=== PATIENT | female | born 1955 | race Caucasian/White ===

== ENCOUNTER → 2017-01-29 | Outpatient (CLI) | payer BC ==
[~2017-01-29] VITALS: Ht 160 cm; Wt 97.1 kg
[~2017-01-29] MED LIST: DICL75TA PO; GLUC1CAP9 PO; IBUP600T26 PO; LIDOCAINE 2% INJ 100 MG/5 ML SDV (FOR ANES.) As Ordered ONE; LISI-542 PO; MECL12.575 PO; MEGE40TA PO; NORC5TAB PO; NS 1,000 ML IV SCH; OMEP40CA2 PO; PROPOFOL 200 MG/20 ML VIAL As Ordered ONE; SKEL-29 PO; TRIC145T PO; TYLE500T78 PO; VITA200016 PO
--- NOTE | 2017-01-29 09:12 | ROOR ---
Patient Name: Janet Valerio Procedure Date: 01/29/2017 9:00 AM Date of : 1955 Age: 61 Room: [facility] Gender: Female Note Status: Finalized Procedure: Upper GI endoscopy Indications: Dysphagia, Heartburn Providers: Adilson PAPPAS MD Referring MD: Danae Cesar NP Requesting Provider: Medicines: Monitored Anesthesia Care Complications: No immediate complications. Procedure: Pre-Anesthesia Assessment: - The heart rate, respiratory rate, oxygen saturations, blood pressure, adequacy of pulmonary ventilation, and response to care were monitored throughout the procedure. The Endoscope was introduced through the mouth, and advanced to the second part of duodenum. The upper GI endoscopy was accomplished without difficulty. The patient tolerated the procedure well. Findings: The esophagus was normal. The stomach was normal. The examined duodenum was normal. No endoscopic abnormality was evident in the esophagus to explain the patient's complaint of dysphagia. It was decided, however, to proceed with dilation of the entire esophagus. The scope was withdrawn. Dilation was performed with a Awan dilator with no resistance at 54 Fr. The dilation site was examined and showed no change. Impression: - Normal esophagus. - Normal stomach. - Normal examined duodenum. - No endoscopic esophageal abnormality to explain patient's dysphagia. Esophagus dilated with 54 awan dilator. - No specimens collected. Recommendation: - Continue present medications. - Observe patient's clinical course. - I anticipate no further need for intervention. Adilson Pappas MD Adilson PAPPAS MD 01/29/2017 9:11:40 AM This report has been signed electronically. Number of Addenda: 0 Note Initiated On: 01/29/2017 9:00 AM Estimated Blood Loss: Estimated blood loss: none.
--- NOTE | 2017-01-29 09:22 | ROOR ---
Patient Name: Janet Valerio Procedure Date: 01/29/2017 9:00 AM Date of : 1955 Age: 61 Room: [facility] Gender: Female Note Status: Finalized Procedure: Colonoscopy Indications: High risk colon cancer surveillance: Personal history of colonic polyps, Last colonoscopy: December 2013 Providers: Adilson PAPPAS MD Referring MD: Danae Cesar NP Requesting Provider: Medicines: Monitored Anesthesia Care Complications: No immediate complications. Procedure: Pre-Anesthesia Assessment: - The heart rate, respiratory rate, oxygen saturations, blood pressure, adequacy of pulmonary ventilation, and response to care were monitored throughout the procedure. The Colonoscope was introduced through the anus and advanced to the cecum, identified by appendiceal orifice and ileocecal valve. The colonoscopy was performed without difficulty. The patient tolerated the procedure well. The quality of the bowel preparation was good. Findings: The perianal and digital rectal examinations were normal. (Exam: Complete, Prep: Good or Excellent.) The entire examined colon appeared normal on direct and retroflexion views. Impression: - Small internal hemorrhoids. - The entire colon is normal on direct and retroflexion views. - No specimens collected. Recommendation: - Repeat colonoscopy in 5 years for adenoma surveillance. Adilson Pappas MD Adilson PAPPAS MD 01/29/2017 9:22:02 AM This report has been signed electronically. Number of Addenda: 0 Note Initiated On: 01/29/2017 9:00 AM Estimated Blood Loss: Estimated blood loss: none.
[2017-01-29 09:45] VITALS: BP 136/79
== END ==
LOC: M OPP 07:49
PROVIDERS: ATTEND Internal Medicine Gastroenterology
DX: Z12.11 Encounter for screening for malignant neoplasm of colon (principal); Z86.010 Personal history of colon polyps; K64.8 Other hemorrhoids; R13.10 Dysphagia, unspecified; R12 Heartburn; I10 Essential (primary) hypertension; E78.5 Hyperlipidemia, unspecified; M51.26 Other intervertebral disc displacement, lumbar region; G47.30 Sleep apnea, unspecified; Z79.899 Other long term (current) drug therapy; Z88.0 Allergy status to penicillin; Z88.1 Allergy status to other antibiotic agents; Z88.2 Allergy status to sulfonamides
CPT/HCPCS: 43235; 43450; 99156; 99157; G0105

== ENCOUNTER → 2017-05-26 | Outpatient (REF) | payer BC ==
[~2017-05-26] MED LIST changes: +IBUP-1022 PO; -IBUP600T26 PO; -LIDOCAINE 2% INJ 100 MG/5 ML SDV (FOR ANES.) As Ordered ONE; -MEGE40TA PO; +MEGE40TA18 PO; +NORC1TAB4 PO; -NORC5TAB PO; -NS 1,000 ML IV SCH; -PROPOFOL 200 MG/20 ML VIAL As Ordered ONE; -SKEL-29 PO; +SKEL800T97 PO; -TRIC145T PO; +TRIC145T22 PO
[2017-05-26 13:05] LABS: ALBUMIN 3.7 GM/DL (3.2-5.2); ALBUMIN/GLOBULIN RATIO 1.23 (1.00-1.93); BILIRUBIN,DIRECT 0.1 MG/DL (0.0-0.2); BILIRUBIN,TOTAL 0.4 MG/DL (0.2-1.0); TOTAL PROTEIN 6.7 GM/DL (6.4-8.2)
== END ==
LOC: M SFHCCLAY 07:05
PROVIDERS: ATTEND Nurse Practitioner Family
DX: E78.2 Mixed hyperlipidemia (principal); E55.9 Vitamin D deficiency, unspecified

== ENCOUNTER → 2018-05-13 | Outpatient (REF) | payer BC ==
[2018-05-13 13:03] LABS: ALBUMIN 3.8 GM/DL (3.2-5.2); ALBUMIN/GLOBULIN RATIO 1.19 (1.00-1.93); ALKALINE PHOSPHATASE 64 U/L (45-117); ALT/SGPT 27 U/L (12-78); ANION GAP 7 MEQ/L (8-16); AST/SGOT 15 U/L (7-37); BILIRUBIN,TOTAL 0.5 MG/DL (0.2-1.0); BLOOD UREA NITROGEN 22 MG/DL (7-18); CALCIUM LEVEL 8.8 MG/DL (8.8-10.2); CARBON DIOXIDE LEVEL 27 MEQ/L (21-32); CHLORIDE LEVEL 109 MEQ/L (98-107); CHOLESTEROL LEVEL 133 MG/DL (<200); CHOLESTEROL RISK RATIO 2.509 (<5); CREATININE FOR GFR 0.82 MG/DL (0.55-1.30); GLOMERULAR FILTRATION RATE > 60.0 (>45); GLUCOSE, FASTING 103 MG/DL (70-100); HDL CHOLESTEROL 53 MG/DL (>40); LDL CHOLESTEROL 67.8 MG/DL (<100); NON-HDL-C 80 MG/DL; POTASSIUM SERUM 4.6 MEQ/L (3.5-5.1); SODIUM LEVEL 143 MEQ/L (136-145); TRIGLYCERIDES LEVEL 61 MG/DL (<150)
[2018-05-13 13:08] LABS: HEMOGLOBIN 13.5 g/dl (12.0-15.5); MEAN CORPUSCULAR HEMOGLOBIN 29.6 pg (27.0-33.0); MEAN CORPUSCULAR HGB CONC 33.8 g/dl (32.0-36.5); MEAN CORPUSCULAR VOLUME 87.7 fl (80.0-96.0); PLATELET COUNT, AUTOMATED 184 10^3/uL (150-450); RED BLOOD COUNT 4.56 10^6/uL (4.00-5.40); WHITE BLOOD COUNT 6.2 10^3/uL (4.0-10.0)
[2018-05-13 13:09] LABS: TOTAL 25(OH) VITAMIN D 16.2 NG/ML (30.0-100.0)
[2018-05-13 13:20] LABS: ESTIMATED AVERAGE GLUCOSE 117 MG/DL (60-110); HEMOGLOBIN A1c 5.7 %
== END ==
LOC: M SFHCCLAY 07:01
DX: K21.9 Gastro-esophageal reflux disease without esophagitis (principal); I10 Essential (primary) hypertension; R73.09 Other abnormal glucose; E78.2 Mixed hyperlipidemia; Z68.35 Body mass index [BMI] 35.0-35.9, adult; Z13.21 Encounter for screening for nutritional disorder
CPT/HCPCS: 84443

== ENCOUNTER → 2018-06-07 | Outpatient (REF) | payer BC ==
[2018-06-07 11:47] LABS: RHEUMATOID FACTOR QUANT < 10.0 IU/ML (<15.0)
[2018-06-07 11:48] LABS: ERYTHROCYTE SEDIMENTATION RATE 7 mm/hr (0-30)
[2018-06-09 14:40] LABS: ANTI DOUBLE STRAND-DNA AB 2 IU/mL (0-9); ANTINUCLEAR ANTIBODIES DIRECT Positive (Negative); Lyme Disease IgG Ab 18 kDa Ban Absent (.); Lyme Disease IgG Ab 23 kDa Ban Absent (.); Lyme Disease IgG Ab 28 kDa Ban Absent (.); Lyme Disease IgG Ab 30 kDa Ban Absent (.); Lyme Disease IgG Ab 39 kDa Ban Absent (.); Lyme Disease IgG Ab 41 kDa Ban Absent (.); Lyme Disease IgG Ab 45 kDa Ban Absent (.); Lyme Disease IgG Ab 58 kDa Ban Absent (.); Lyme Disease IgG Ab 66 kDa Ban Absent (.); Lyme Disease IgG Ab 93 kDa Ban Absent (.); Lyme Disease IgG West Blot Int Negative (.); Lyme Disease IgG/IgM Antibodie 1.12 ISR (0.00-0.90); Lyme Disease IgM Ab 23 kDa Ban Absent (.); Lyme Disease IgM Ab 39 kDa Ban Absent (.); Lyme Disease IgM Ab 41 kDa Ban Absent (.); Lyme Disease IgM Ab Quantitati <0.80 index (0.00-0.79); Lyme Disease IgM West Blot Int Negative (.); RNP ANTIBODIES <0.2 AI (0.0-0.9); SJOGREN'S ANTI SS-A <0.2 AI (0.0-0.9); SJOGREN'S ANTI SS-B <0.2 AI (0.0-0.9); SMITH ANTIBODIES <0.2 AI (0.0-0.9)
== END ==
LOC: M SFHCCLAY 06:57
DX: M25.50 Pain in unspecified joint (principal)
CPT/HCPCS: 85652

== ENCOUNTER → 2018-08-24 | Outpatient (CLI) | payer BC | LOC: M LRY 09:20 | DX: M79.645 Pain in left finger(s) (principal) | CPT/HCPCS: 76882 ==

== ENCOUNTER → 2018-08-24 | Outpatient (REF) | payer BC ==
[2018-08-26 00:08] LABS: ANA (HEP2) Positive (.); ANA CENTROMERE PATTERN >1:1280 (.)
== END ==
LOC: M SFHCLERA 09:20
DX: R76.8 Other specified abnormal immunological findings in serum (principal)
CPT/HCPCS: 86038

== ENCOUNTER → 2018-09-23 | Outpatient (REF) | payer BC | LOC: M SFHCLERA 17:15 | DX: R76.8 Other specified abnormal immunological findings in serum (principal) | CPT/HCPCS: 86255 ==

== ENCOUNTER → 2018-11-02 | Outpatient (CLI) | payer BC | LOC: M CARPUL 11:12 | DX: M34.9 Systemic sclerosis, unspecified (principal) | CPT/HCPCS: 93306 ==

== ENCOUNTER 2018-12-29 12:47 | Day surgery (SDC) | payer BC ==
[~2018-12-29] VITALS: Ht 160 cm; Wt 98.4 kg
[~2018-12-29 12:47] MED LIST changes: +CALTCHW4 PO; +DICY1CAP8 PO; +LIDOCAINE 2% INJ 100 MG/5 ML SDV (FOR ANES.) As Ordered ONE; +MOBI4TAB PO; +NS 1,000 ML IV ONE; +OMEP20CA3 PO; +PROPOFOL 200 MG/20 ML VIAL As Ordered ONE; +RANI150T PO; +TURM500C PO; +VITA500T PO
[2018-12-29] MEDS ORDERED: fentaNYL 100 MCG/2 ML INJECTION (J3010) As Ordered ONE (13:38)
--- NOTE | 2018-12-29 13:59 | ROOR ---
Patient Name: Janet Valerio Procedure Date: 12/29/2018 1:42 PM Date of : 1955 Age: 63 Room: [facility] Gender: Female Note Status: Finalized Procedure: Upper GI endoscopy Indications: Dysphagia, Suspected esophageal reflux, Scleroderma Providers: Adilson PAPPAS MD Referring MD: Danae Cesar NP Requesting Provider: Medicines: Monitored Anesthesia Care Complications: No immediate complications. Procedure: Pre-Anesthesia Assessment: - The heart rate, respiratory rate, oxygen saturations, blood pressure, adequacy of pulmonary ventilation, and response to care were monitored throughout the procedure. The Endoscope was introduced through the mouth, and advanced to the second part of duodenum. The upper GI endoscopy was accomplished without difficulty. The patient tolerated the procedure well. Findings: The esophagus was normal. The stomach was normal. The examined duodenum was normal. Several biopsies were obtained in the entire esophagus with cold forceps for evaluation of eosinophilic esophagitis. Several biopsies were obtained at the gastroesophageal junction with cold forceps for evaluation to rule out Alejandro's Esophagus. Impression: - Normal esophagus. - Normal stomach. - Normal examined duodenum. - Several biopsies were obtained in the entire esophagus. - Several biopsies were obtained in the gastroesophageal junction. Recommendation: - Use Prilosec (omeprazole) 20 mg PO BID indefinitely. - Use Zantac (ranitidine) 300 mg PO at bedtime indefinitely. - Telephone endoscopist for pathology results in 2 weeks. Adilson Pappas MD Adilson PAPPAS MD 12/29/2018 1:59:27 PM This report has been signed electronically. Number of Addenda: 0 Note Initiated On: 12/29/2018 1:42 PM Estimated Blood Loss: Estimated blood loss: none.
[2018-12-29 14:32] VITALS: BP 133/82
== END 2018-12-29 14:32 | disposition home or self-care (01) ==
LOC: M OPP 12:47
PROVIDERS: ATTEND Internal Medicine Gastroenterology
DX: R13.10 Dysphagia, unspecified (principal); M34.9 Systemic sclerosis, unspecified
CPT/HCPCS: 43239; 88305; J3010

== ENCOUNTER → 2019-06-05 | Outpatient (REF) | payer BC ==
[~2019-06-05] MED LIST changes: -LIDOCAINE 2% INJ 100 MG/5 ML SDV (FOR ANES.) As Ordered ONE; -NORC1TAB4 PO; +NORC1TAB7 PO; -NS 1,000 ML IV ONE; -OMEP20CA3 PO; +OMEP20CA4 PO; -PROPOFOL 200 MG/20 ML VIAL As Ordered ONE
[2019-06-05 11:11] LABS: HEMATOCRIT 41.7 % (36.0-47.0); MEAN CORPUSCULAR HEMOGLOBIN 30.1 pg (27.0-33.0); MEAN CORPUSCULAR HGB CONC 33.6 g/dl (32.0-36.5); MEAN CORPUSCULAR VOLUME 89.7 fl (80.0-96.0); PLATELET COUNT, AUTOMATED 211 10^3/uL (150-450); RED BLOOD COUNT 4.65 10^6/uL (4.00-5.40); WHITE BLOOD COUNT 4.9 10^3/uL (4.0-10.0)
[2019-06-05 11:24] LABS: ALBUMIN 3.9 GM/DL (3.2-5.2); ALT/SGPT 35 U/L (12-78); BILIRUBIN,TOTAL 0.3 MG/DL (0.2-1.0); BLOOD UREA NITROGEN 18 MG/DL (7-18); CALCIUM LEVEL 9.3 MG/DL (8.8-10.2); CARBON DIOXIDE LEVEL 25 MEQ/L (21-32); CHLORIDE LEVEL 110 MEQ/L (98-107); CHOLESTEROL LEVEL 164 MG/DL (<200); CHOLESTEROL RISK RATIO 2.981 (<5); CREATININE FOR GFR 0.85 MG/DL (0.55-1.30); GLOMERULAR FILTRATION RATE > 60.0 (>45); GLUCOSE, FASTING 111 MG/DL (70-100); HDL CHOLESTEROL 55 MG/DL (>40); LDL CHOLESTEROL 95 MG/DL (<100); NON-HDL-C 109 MG/DL; POTASSIUM SERUM 4.4 MEQ/L (3.5-5.1); SODIUM LEVEL 141 MEQ/L (136-145); TOTAL PROTEIN 6.9 GM/DL (6.4-8.2); TRIGLYCERIDES LEVEL 68 MG/DL (<150)
== END ==
LOC: M SFHCCLAY 07:56
PROVIDERS: ATTEND Nurse Practitioner Family
DX: K21.9 Gastro-esophageal reflux disease without esophagitis (principal); I10 Essential (primary) hypertension; E78.2 Mixed hyperlipidemia; E55.9 Vitamin D deficiency, unspecified

== ENCOUNTER → 2019-07-28 | Outpatient (CLI) | payer BC ==
--- NOTE | 2019-08-03 08:13 | ECHO ---
DATE OF PROCEDURE: 08/02/2019 DATE OF : 1955 AGE: 64 REFERRING PROVIDER: PATIENT LOCATION: Outpatient REASON FOR THE ECHOCARDIOGRAM: Systemic involvement of chronic tissue disorder, unspecified. 2D MEASUREMENTS: IVS: 1.1 cm LV: 4.7 cm LVPW: 1.1 cm LA: 3.9 cm Aorta: 2.6 cm RV: 3.4 cm IVC: 2.1 cm DOPPLER MEASUREMENTS: Peak velocity across the aortic valve: 1.6 m/s Peak velocity across the LVOT: 1.1 m/s Mitral E: 0.95, Mitral A: 0.76 with a ratio of 1.2 Maximum tricuspid valve velocity: 2.5 m/s 2D COMMENTS: 1. Normal left ventricular size, wall thickness and normal global left ventricular systolic function. The estimated left ventricular systolic ejection fraction is 60 to 65%. 2. Normal left atrium. Normal right atrium and right ventricle. 3. The atrial septum appeared to be normal without evidence of defect or shunt. 4. Normal aortic root. 5. A small pericardial effusion was noted posteriorly at the base of the left ventricle, no evidence of cardiac tamponade. 6. Normal aortic valve, could not rule out collapse of the anterior mitral valve leaflet. Normal tricuspid valve and pulmonic valve. The proximal pulmonary artery branches also appear to be normal. 7. The inferior vena cava was mildly enlarged. Central venous pressure is mildly elevated. DOPPLER: It detects trace to mild tricuspid regurgitation. The calculated pulmonary artery systolic pressure varies between 30-40 mmHg. Abnormal relaxation pattern was noted across the mitral valve leaflets consistent with features of grade 2 left ventricular diastolic dysfunction. IMPRESSION: 1. Normal global left ventricular systolic function. There are some features of left ventricular diastolic dysfunction, as mentioned above. 2. Mild mitral regurgitation, could not rule out collapse of the anterior mitral valve leaflet. 3. Trace to mild tricuspid regurgitation with mild to moderate hypertension. 4. Small pericardial effusion was noted posteriorly at the base of the left ventricle. No evidence of cardiac tamponade. 5. The inferior vena cava was mildly enlarged. Central venous pressure mildly elevated.
== END ==
LOC: M CARPUL 08:11
PROVIDERS: ATTEND Internal Medicine Rheumatology
DX: M35.9 Systemic involvement of connective tissue, unspecified (principal); K21.9 Gastro-esophageal reflux disease without esophagitis; I31.3 Pericardial effusion (noninflammatory); I34.0 Nonrheumatic mitral (valve) insufficiency; I36.1 Nonrheumatic tricuspid (valve) insufficiency

== ENCOUNTER → 2019-08-07 | Outpatient (CLI) | payer BC ==
[~2019-08-07] MED LIST changes: +E-Z-GAS II EFFERVESCENT PACKET (SODIUM BICARB./CITRIC ACID/SIMETHICONE) As Ordered ONE; +E-Z-HD 98% w/w 340GM SUSP BTL As Ordered ONE; +E-Z-PAQUE 96% w/w SUSP 176GM BTL As Ordered ONE; -MECL12.575 PO; +MECL12.589 PO; +OMEP1CAP73 PO; -OMEP20CA4 PO; -OMEP40CA2 PO; +OMEP40CA97 PO
--- NOTE | 2019-08-07 13:00 | REP ---
Examination Requested: Esophagram Barium Swallow Reason For Exam/Comment: Gastroesophageal reflux disease, connective tissue disease Esophagram: The procedure was performed JAKOB Townsend, under the direct supervision of Dr. Sellers. The images were reviewed with Dr. Sellers. A single PA chest x-ray is submitted as a compensation/benefits specialist film. The superior mediastinal structures are midline. The heart size is within normal limits. The lungs are clear. Liquid barium and gas producing granules were given in the erect position as well as liquid barium in the prone oblique position, in order to perform a double contrast esophagram examination. Oral and pharyngeal stages of the examination were unremarkable. Esophageal transport is efficient and there is no esophagitis, stricture, or mucosal ring noted. There is no hiatal hernia noted. Gastroesophageal reflux was visualized throughout the course of the exam. Impression: 1. Gastroesophageal reflux was visualized throughout the course of the exam. 0.4 minutes of fluoroscopy time was utilized for this procedure. Some fluoroscopic images are performed with last image hold technology. These images require no additional radiation. Reviewed by JAKOB Rocha 08/07/2019 11:55 A Electronically Signed by Rober Sellers MD 08/07/2019 12:51 P
== END ==
LOC: M RAD 09:27
PROVIDERS: ATTEND Internal Medicine Rheumatology
DX: K21.9 Gastro-esophageal reflux disease without esophagitis (principal); M35.9 Systemic involvement of connective tissue, unspecified

== ENCOUNTER → 2019-11-06 | Outpatient (REF) | payer BC ==
[~2019-11-06] MED LIST changes: -E-Z-GAS II EFFERVESCENT PACKET (SODIUM BICARB./CITRIC ACID/SIMETHICONE) As Ordered ONE; -E-Z-HD 98% w/w 340GM SUSP BTL As Ordered ONE; -E-Z-PAQUE 96% w/w SUSP 176GM BTL As Ordered ONE; +MECL12.575 PO; -MECL12.589 PO; +OMEP-172 PO; -OMEP1CAP73 PO
[2019-11-06 13:16] LABS: HEMOGLOBIN A1c 5.9 %
== END ==
LOC: M SFHCCLAY 07:02
PROVIDERS: ATTEND Nurse Practitioner Family
DX: R73.09 Other abnormal glucose (principal)

== ENCOUNTER → 2020-03-06 | Outpatient (REF) | payer BC ==
[~2020-03-06] MED LIST changes: -MECL12.575 PO; +MECL12.589 PO; -OMEP-172 PO; +OMEP1CAP73 PO; +VITA-243 PO; -VITA500T PO
[2020-03-06 12:37] LABS: ALBUMIN 3.8 GM/DL (3.2-5.2); BLOOD UREA NITROGEN 21 MG/DL (7-18); CALCIUM LEVEL 9.7 MG/DL (8.8-10.2); CARBON DIOXIDE LEVEL 29 MEQ/L (21-32); CHLORIDE LEVEL 106 MEQ/L (98-107); CREATININE FOR GFR 0.97 MG/DL (0.55-1.30); GLOMERULAR FILTRATION RATE > 60.0 (>45); GLUCOSE, FASTING 90 MG/DL (70-100); PHOSPHORUS LEVEL 3.6 MG/DL (2.5-4.9); SODIUM LEVEL 139 MEQ/L (136-145)
== END ==
LOC: M SFHCCLAY 08:33
PROVIDERS: ATTEND Nurse Practitioner Family
DX: I10 Essential (primary) hypertension (principal)

== ENCOUNTER → 2020-07-01 | Outpatient (REF) | payer BC ==
[2020-07-31 15:17] LABS: MEAN CORPUSCULAR HEMOGLOBIN 30.3 pg (27.0-33.0); MEAN CORPUSCULAR HGB CONC 33.3 g/dl (32.0-36.5); MEAN CORPUSCULAR VOLUME 90.9 fl (80.0-96.0); PLATELET COUNT, AUTOMATED 218 10^3/uL (150-450); RED BLOOD COUNT 4.62 10^6/uL (4.00-5.40); WHITE BLOOD COUNT 5.3 10^3/uL (4.0-10.0)
[2020-08-13 09:14] LABS: ALT/SGPT 27 U/L (12-78); BILIRUBIN,TOTAL 0.2 MG/DL (0.2-1.0); BLOOD UREA NITROGEN 20 MG/DL (7-18); CALCIUM LEVEL 9.5 MG/DL (8.8-10.2); CARBON DIOXIDE LEVEL 28 MEQ/L (21-32); CHLORIDE LEVEL 108 MEQ/L (98-107); CHOLESTEROL LEVEL 183 MG/DL (<200); CHOLESTEROL RISK RATIO 3.452 (<5); CREATININE FOR GFR 0.92 MG/DL (0.55-1.30); GLOMERULAR FILTRATION RATE > 60.0 (>45); GLUCOSE, FASTING 102 MG/DL (70-100); HDL CHOLESTEROL 53 MG/DL (>40); HEMOGLOBIN A1c 5.5 %; LDL CHOLESTEROL 113 MG/DL (<100); NON-HDL-C 130 MG/DL; POTASSIUM SERUM 4.2 MEQ/L (3.5-5.1); SODIUM LEVEL 139 MEQ/L (136-145); TOTAL 25(OH) VITAMIN D 51.7 NG/ML (30.0-100.0); TRIGLYCERIDES LEVEL 85 MG/DL (<150)
== END ==
LOC: M SFHCCLAY 11:12
PROVIDERS: ATTEND Nurse Practitioner Family
DX: I10 Essential (primary) hypertension (principal); E78.2 Mixed hyperlipidemia; E55.9 Vitamin D deficiency, unspecified; R73.09 Other abnormal glucose

== ENCOUNTER → 2020-10-01 | Outpatient (REF) | payer BC ==
[2020-10-01 11:48] LABS: HEMATOCRIT 42.4 % (36.0-47.0); HEMOGLOBIN 13.8 g/dl (12.0-15.5); MEAN CORPUSCULAR HEMOGLOBIN 29.1 pg (27.0-33.0); MEAN CORPUSCULAR HGB CONC 32.5 g/dl (32.0-36.5); MEAN CORPUSCULAR VOLUME 89.3 fl (80.0-96.0); PLATELET COUNT, AUTOMATED 167 10^3/uL (150-450); RED BLOOD COUNT 4.75 10^6/uL (4.00-5.40); WHITE BLOOD COUNT 5.2 10^3/uL (4.0-10.0)
[2020-10-01 11:56] LABS: HEMOGLOBIN A1c 5.4 %
[2020-10-01 12:09] LABS: ALBUMIN 3.7 GM/DL (3.2-5.2); ALT/SGPT 22 U/L (12-78); BILIRUBIN,TOTAL 0.9 MG/DL (0.2-1.0); BLOOD UREA NITROGEN 13 MG/DL (7-18); CALCIUM LEVEL 9.5 MG/DL (8.8-10.2); CARBON DIOXIDE LEVEL 28 MEQ/L (21-32); CHLORIDE LEVEL 106 MEQ/L (98-107); CHOLESTEROL LEVEL 249 MG/DL (<200); CREATININE FOR GFR 0.82 MG/DL (0.55-1.30); GLOMERULAR FILTRATION RATE > 60.0 (>45); GLUCOSE, FASTING 99 MG/DL (70-100); HDL CHOLESTEROL 43 MG/DL (>40); LDL CHOLESTEROL 167 MG/DL (<100); NON-HDL-C 206 MG/DL; POTASSIUM SERUM 4.2 MEQ/L (3.5-5.1); SODIUM LEVEL 141 MEQ/L (136-145); TRIGLYCERIDES LEVEL 196 MG/DL (<150)
== END ==
LOC: M SFHCCLAY 07:21
PROVIDERS: ATTEND Nurse Practitioner Family
DX: I10 Essential (primary) hypertension (principal); R73.09 Other abnormal glucose; E78.2 Mixed hyperlipidemia; E55.9 Vitamin D deficiency, unspecified

== ENCOUNTER → 2020-10-04 | Outpatient (CLI) | payer BC ==
--- NOTE | 2020-10-04 13:02 | REP ---
INDICATION: SHORTNESS OF BREATH. COMPARISON: No comparison study. TECHNIQUE: Two views.. FINDINGS: The lungs are well inflated and free of infiltrate. The pleural angles are sharp. The heart size is normal. Pulmonary vasculature is not increased. No significant bony abnormality is seen. IMPRESSION: Negative chest x-ray. <Electronically signed by Faizan Moon > 10/04/20 [id number]
== END ==
LOC: M RAD 10:16
PROVIDERS: ATTEND Internal Medicine Pulmonary Disease
DX: R06.02 Shortness of breath (principal)

== ENCOUNTER → 2020-10-22 | Outpatient (CLI) | payer BC ==
[~2020-10-22] MED LIST changes: -MECL12.589 PO; +MECL12.590 PO; +METHACHOLINE KIT (J7674) INH ONE
--- NOTE | 2020-10-22 10:03 | PFTRPT ---
Height: 64.50 Inches Weight: 218.00 Lbs BSA: 2.04 Diagnosis: R06.02 DATE: 10/22/2020 ORDERED BY: Dr. Mcdonald. QUALITY: Study of excellent technical quality. PROCEDURE: Under protocol, methacholine was administered. At a dose of 10 mg or 63.75 CDUs, a 24% decline in the FEV1 was noted. PC of 3.54 is significant. Flow rates did return to baseline post bronchodilator administration. IMPRESSION: Positive methacholine challenge study. MTDD
== END ==
LOC: M CARPUL 10-15 09:35
PROVIDERS: ATTEND Internal Medicine Pulmonary Disease
DX: R06.02 Shortness of breath (principal)

== ENCOUNTER → 2021-02-11 | Outpatient (REF) | payer BC ==
[~2021-02-11] MED LIST changes: -LISI-542 PO; +LISI-898 PO; +MECL-136 PO; -MECL12.590 PO; -METHACHOLINE KIT (J7674) INH ONE
[2021-02-11 11:47] LABS: ALBUMIN 3.8 GM/DL (3.2-5.2); BILIRUBIN,DIRECT 0.1 MG/DL (0.0-0.2); BILIRUBIN,TOTAL 0.2 MG/DL (0.2-1.0); CHOLESTEROL RISK RATIO 2.578 (<5); TOTAL PROTEIN 6.8 GM/DL (6.4-8.2)
[2021-02-11 11:56] LABS: TOTAL 25(OH) VITAMIN D 36.3 NG/ML (30.0-100.0)
[2021-02-11 12:56] LABS: HEMOGLOBIN A1c 5.5 %
== END ==
LOC: M SFHCCLAY 08:00
PROVIDERS: ATTEND Nurse Practitioner Family
DX: R73.09 Other abnormal glucose (principal); E78.2 Mixed hyperlipidemia; E55.9 Vitamin D deficiency, unspecified

== ENCOUNTER → 2021-05-12 | Outpatient (REF) | payer BC ==
[~2021-05-12] MED LIST changes: +OMEP40CA4 PO; -OMEP40CA97 PO
[2021-05-12 12:15] LABS: CHOLESTEROL RISK RATIO 2.672 (<5)
== END ==
LOC: M SFHCCLAY 09:02
PROVIDERS: ATTEND Nurse Practitioner Family
DX: E78.5 Hyperlipidemia, unspecified (principal)